=== PATIENT | female | born 1970 | race Caucasian/White ===

== ENCOUNTER 2016-06-13 20:26 | Emergency (ER) | payer OTHER | END 2016-06-13 23:12 | disposition critical access hospital (66) | LOC: ER 20:26 | DX: E10.10 Type 1 diabetes mellitus with ketoacidosis without coma (principal); D72.829 Elevated white blood cell count, unspecified; E87.5 Hyperkalemia; K21.9 Gastro-esophageal reflux disease without esophagitis; F17.200 Nicotine dependence, unspecified, uncomplicated; Z90.710 Acquired absence of both cervix and uterus; Z79.899 Other long term (current) drug therapy | CPT/HCPCS: 36415; 51702; 80307; 96361; 96365; 96375; 96376; G0480 ==

== ENCOUNTER 2016-06-13 20:26 | Inpatient (IN) | payer OTHER ==
[~2016-06-13] VITALS: Ht 165.1 cm; Wt 59.0 kg
--- NOTE | 2016-06-14 13:36 | NUR ---
0930- HERE TO SEE AND ASSESS PT AT THIS TIME. UPDATED ON PT CONDITION AND AM LABS. N/O'S NOTED
== END 2016-06-16 10:08 | disposition home or self-care (01) | DRG 638 ==
LOC: ER 20:26 → ICU 23:13
PROVIDERS: ADMIT Internal Medicine
DX: E10.10 Type 1 diabetes mellitus with ketoacidosis without coma (principal); N17.9 Acute kidney failure, unspecified; D72.829 Elevated white blood cell count, unspecified; E83.39 Other disorders of phosphorus metabolism; E87.6 Hypokalemia; J44.9 Chronic obstructive pulmonary disease, unspecified; F17.210 Nicotine dependence, cigarettes, uncomplicated; G35 Multiple sclerosis; G47.33 Obstructive sleep apnea (adult) (pediatric); E10.319 Type 1 diabetes mellitus with unspecified diabetic retinopathy without macular edema; Z79.4 Long term (current) use of insulin; F41.9 Anxiety disorder, unspecified; F32.9 Major depressive disorder, single episode, unspecified; K21.9 Gastro-esophageal reflux disease without esophagitis; Z86.19 Personal history of other infectious and parasitic diseases; G89.29 Other chronic pain; Z79.899 Other long term (current) drug therapy; Z80.0 Family history of malignant neoplasm of digestive organs; M54.5 Low back pain
CPT/HCPCS: 36415; 70551; 80307; 97162-GP; 97165; G0480; J1644